=== PATIENT | male | born 1995 | race Two or more races ===

== ENCOUNTER 2019-08-07 11:15 | Emergency (ER) | payer OTHER ==
[~2019-08-07] VITALS: Ht 172.7 cm; Wt 69.5 kg
--- NOTE | 2019-08-07 11:40 | NUR ---
Ultrasound here for exam of testicle.
[2019-08-07] MEDS ORDERED: NAPROSYN500 MG PO (12:26)
--- NOTE | 2019-08-07 12:43 | Diagnostic Imaging Report ---
EXAM: Scrotal Ultrasound INDICATION: COMPARISON: None TECHNIQUE: Transverse and longitudinal images were obtained of the scrotum with grayscale imaging, color Doppler and spectral waveform analysis. FINDINGS: Right testis: Size: 4.3 x 2.6 x 3.5 cm, normal in size. Echogenicity: Normal Mass/Cysts: None Left testis: Size: 4.5 x 2.4 x 3.2 cm, normal in size. Echogenicity: Normal Mass/Cysts: None Epididymis: Appearance: Normal in size without increased vascularity. Mass/Cysts: None Extratesticular: Masses: None Fluid collections: None Doppler: Normal arterial flow to both testes and symmetrical flow on color Doppler evaluation is seen. No evidence of testicular torsion. IMPRESSION: 1. No evidence of testicular torsion. 2. Normal scrotal ultrasound exam. Signed by: Dr. Salma Littlejohn M.D. on 08/07/2019 12:40 PM
[2019-08-07 13:21] VITALS: BP 115/73
== END 2019-08-07 13:03 | disposition home or self-care (01) ==
LOC: FSED 11:15
DX: N50.812 Left testicular pain (principal)
CPT/HCPCS: 76870; 81003; 99283